=== PATIENT | female | born 1985 | race Caucasian/White ===

== ENCOUNTER 2022-05-30 13:04 | Outpatient (CLI) | payer BC, SELFPAY ==
--- NOTE | 2022-05-30 13:20 | CRLHL7_ITS ---
For Patients: As a result of the Cures Act, medical imaging exams and procedure reports are released immediately into your electronic medical record. You may view this report before your referring provider. If you have questions, please contact your health care provider. BILATERAL SCREENING MAMMOGRAM WITH COMPUTER-AIDED DETECTION AND TOMOSYNTHESIS TECHNIQUE: CC and MLO views were obtained. These mammographic images have been obtained using full-field digital technique. These mammographic images were interpreted with the benefit of computer-aided detection. Breast tomosynthesis was used in this interpretation. COMPARISON FILM: 04/05/21, 03/25/15. FINDINGS: There are scattered areas of fibroglandular density. IMPRESSION: There is no radiographic evidence for malignancy. ASSESSMENT: BI-RADS Category 1: Negative RECOMMENDATION: Routine screening mammogram in 1 year. A lay language report of this examination will be provided to the patient. NATASHA CARDONA M.D. Diagnostic/Nuclear Medicine Radiologist [email or web address] [place]:merced Transcribed: 05/31/2022, 3:[address]/Dictated by: Natasha Cardona MD @ 05/31/2022 8:13:00 AM (Electronically Signed)
== END 2022-05-30 13:05 | disposition home or self-care (01) ==
LOC: MAMMO 13:05
PROVIDERS: Visit Provider Physician Assistant
DX: Z12.31 Encounter for screening mammogram for malignant neoplasm of breast (principal)
CPT/HCPCS: 77063; 77067

== ENCOUNTER 2023-07-03 13:29 | Outpatient (CLI) | payer BC, SELFPAY ==
--- NOTE | 2023-07-03 13:40 | MM_ITS ---
Patient: [facility] Facility:?[facility] Patient ID:?[id number] Site Patient ID:?[id number]. Site :?[id number] Study:?XRay-Breast Bilateral 3D W/CAD-07/03/2023 2:43:47 PM Ordering Physician:Bubba August Final Report: BILATERAL SCREENING MAMMOGRAM WITH COMPUTER-AIDED DETECTION AND TOMOSYNTHESIS TECHNIQUE: CC and MLO views were obtained. These mammographic images have been obtained using full-field digital technique. These mammographic images were interpreted with the benefit of computer-aided detection. Breast Tomosynthesis was used in this interpretation. COMPARISON FILM: 05/30/22, 04/05/21, 03/25/15. FINDINGS: There are scattered areas of fibroglandular density. IMPRESSION: There is no radiographic evidence for malignancy. ASSESSMENT: BI-RADS Category 1: Negative RECOMMENDATION: Routine screening mammogram in 1 year. A lay language report of this examination will be provided to the patient. Dallas Frank M.D. Diagnostic Radiologist [email or web address] DSM/sp R& Transcribed: 4:41 [address] SP/Dictated by: Dallas Frank MD @ 07/04/2023 8:37:00 AM Signed by:?Dallas Frank MD @07/05/2023 5:28:09 AM (Electronic Signature)
== END 2023-07-03 13:30 | disposition home or self-care (01) ==
LOC: MAMMO 13:30
PROVIDERS: Visit Provider Physician Assistant
DX: Z12.31 Encounter for screening mammogram for malignant neoplasm of breast (principal)
CPT/HCPCS: 77063; 77067